=== PATIENT | male | born 1995 | race Two or more races ===

== ENCOUNTER 2025-01-19 04:05 | Emergency (ER) | payer MEDICAID, SELFPAY ==
[2025-01-19 04:06] VITALS: BMI 37.1
[2025-01-19 04:25] VITALS: BP 143/96; PULSE 100; RESP 18; TEMP 37.2; O2SAT 98
--- NOTE | 2025-01-19 04:34 | EDNOTE_ITS ---
ED Ear RME/HPI General Chief complaint: Ear Stated complaint: R EAR PAIN DRAINAGE Time Seen by Provider: 01/19/25 04:29 Arrival date/time: 01/19/25 04:05 29M with no significant PMH presents to ED with R ear pain/drainage and reduced hearing that started after he sneezed really hard. Patient also has a cough. Limitations: no limitations Related Data Previous Rx's ?Medication ?Instructions ?Recorded Hydrocodone/Acetaminophen * (NORCO 1 tab PO Q6H PRN PA IN #12 tabs 01/21/17 5/325 *) amoxicillin 875 mg tablet 875 mg PO BID 7 days #14 tab s 01/19/25 ofloxacin 0.3 % ear drops 5 drp otic (ear) BID 10 days #10 mL 01/19/25 Allergies Allergy/AdvReac Type Severity Reaction Status Date / Time cefixime Allergy Intermediate UNK Verified 01/19/25 04:10 Review of Systems Review of Systems Systems Reviewed: All systems reviewed, normal except as documented Constitutional Constitutional: Reports system reviewed and no additional complaints, except as documented, Denies fever(s) and Denies headache(s) ENT Ears, Nose, Mouth, and Throat: Reports as per HPI, Denies disequilibrium, Reports otalgia, Denies headache(s) and Reports hearing loss Cardiovascular Cardiovascular: Reports system reviewed and no additional complaints, except as documented, Denies chest pain and Denies dyspnea Respiratory Respiratory: Reports system reviewed and no additional complaints, except as documented, Denies cough and Denies dyspnea Gastrointestinal Gastrointestinal: Reports system reviewed and no additional complaints, except as documented, Denies abdominal pain, Denies nausea and Denies vomiting Neurologic Neurologic: Reports system reviewed and no additional complaints, except as documented, Denies confusion, Denies disequilibrium and Denies headache(s) Psychiatric Psychiatric: Denies confusion Past Medical History Social History SMOKING STATUS: Current some day smoker ED Exam General Limitations: Present no limitations General appearance: Present alert and in no apparent distress Head Head exam: Present atraumatic Eye Eye exam: Present normal appearance, PERRL and EOMI ENT ENT exam: Present normal oropharynx and mucous membranes moist Expanded ENT Exam External ear exam: Present external tenderness (R tragal) TM/Canal exam: Left TM: erythema and bulging and Right TM: canal discharge and canal tenderness Neck Neck exam: Present normal inspection, full ROM and trachea midline Chest Chest inspection: Present normal inspection and symmetric chest wall rise Respiratory Respiratory exam: Present normal lung sounds bilaterally Cardiovascular Cardiovascular exam: Present regular rate, normal rhythm and normal heart sounds Abdominal Exam Abdominal exam: Present soft and normal bowel sounds Extremities Exam Extremities exam: Present normal inspection and full ROM Back Exam Back exam: Present normal inspection and full ROM Neurological Exam Neurological exam: Present alert, oriented X3 and CN II-XII intact Psychiatric Psychiatric exam: Present normal affect and normal mood Skin Skin exam: Present warm, dry, intact and normal color Course Quality Measures none Orders Category Date Time Status Naproxen [Naprosyn] Med 01/19/25 04:29 Once 500 mg PO X1 ONE Vital Signs Vital signs: Vital Signs Temperature 98.9 F 01/19/25 04:25 Pulse Rate 100 01/19/25 04:25 Respiratory Rate 18 01/19/25 04:25 Blood Pressure 143/96 H 01/19/25 04:25 Pulse Oximetry (%) 98 01/19/25 04:25 Oxygen Delivery Method Room Air 01/19/25 04:25 O@ at 98% on RA and WNLs Ear MDM Narrative MDM Narrative:: 29M with no significant PMH presents to ED with R ear pain/drainage and reduced hearing that started after he sneezed really hard. Patient also has a cough. Physical exam reveals R tragal tenderness. TM not well visualized, but patient states he cannot hear out of that ear. L TM is red and bulging. Normal WOB. Patient is afebrile, calm, and alert. Will treat as perforated OM and OE. Meds and counselling psychologist given. Patient data External records reviewed:: [facility] previous records Clinical information provided by:: patient Social determinants that could affect healthcare access:: none Patient has the following chronic illnesses:: none How is presenting disease/condition affected by chronic disease/condition?: no chronic disease Evaluation data The following diagnostics were reviewed and interpreted by me:: other (specify) (none) Lab and/or radiology exams considered but not ordered:: not ordered Interpretation Summary: n/a Medications / Prescriptions Medications or Prescriptions considered but not ordered:: ordered Medication administrations:: Medication Administration History Naproxen (Naproxen 250 Mg Tablet) 500 mg PO X1 ONE Stop: 01/19/25 04:30 above Consultations Consultation(s) initiated? (list below): No Diagnosis Ear Differential Diagnosis: otitis externa, otitis media, foreign body in ear, ruptured TM and cerumen impaction Most likely diagnosis given after review of the tests above:: OM and OE Admission Indicated Admission indicated?: not indicated Admission Request Was there a request for admission?: No Disposition Plan Disposition Plan: Discharge Discharge Attestation Discharge Attestation: The patient and all family members were given an opportunity to ask questions and understood the discharge instructions. Discharge instructions specifically effects, indications for sooner follow up or return to the emergency department, and the expected course of current diagnosis. Patient condition: Stable Discharge Plan Plan Patient Disposition: HOME (Self Care) Discharge Disposition comment: Stable Prescriptions/Referrals Prescriptions/Med Rec: New ofloxacin 0.3 % drops 5 drp otic (ear) BID 10 Days Qty: 10 0RF Rx Instructions: Keep drops in ear at least 1 min each time amoxicillin 875 mg tablet 875 mg PO BID 7 Days Qty: 14 0RF No Action Hydrocodone/Acetaminophen * (NORCO 5/325 *) 1 TAB tablet 1 tab PO Q6H PRN (Reason: PAIN) Qty: 12 0RF Problem List Clinical Impression: Otitis externa, Otitis media Patient/Caregiver Discharge Instructions Education Materials: ED PERFORATED TM Infected [Adult], ED External Ear Infection (Adult) Additional Instructions: Please follow-up with PCP within 24-48 hours and return immediately if symptoms worsen. If problem persists, can see PCP for ENT referral. Keep drops in ear at least 1 min each time. Print Language: Jamaican Stand Alone Forms: Patient Portal Info Letter ANNE/ANISH Supervising Physician ANNE/ANISH Supervising Physician: Dr. Key
[2025-01-19] MEDS: NAPROXEN 250 MG TABLET 500 MG PO (04:47)
== END 2025-01-19 04:51 | disposition home or self-care (01) ==
LOC: SERX 05:21
PROVIDERS: Emergency Provider Emergency Medicine; PCP Family Medicine
DX: H60.92 Unspecified otitis externa, left ear (principal); H66.92 Otitis media, unspecified, left ear; F17.210 Nicotine dependence, cigarettes, uncomplicated
CPT/HCPCS: 99282; A9270